=== PATIENT | female | born 1935 | race Caucasian/White ===

== ENCOUNTER 2020-08-23 10:23 | Outpatient (CLI) | payer MEDICARE, OTHER | END 2020-08-23 10:24 | disposition home or self-care (01) | LOC: CSHMAMMO 10:23 | PROVIDERS: ATTEND Family Medicine | DX: Z78.0 Asymptomatic menopausal state (principal); M85.89 Other specified disorders of bone density and structure, multiple sites | CPT/HCPCS: 77080 ==